=== PATIENT | female | born 1955 | race Caucasian/White ===

== ENCOUNTER → 2021-04-30 | Outpatient (CLI) | payer MEDICARE ==
--- NOTE | 2021-04-30 15:32 | RAD ---
EXAM: Renal sonogram. HISTORY: Renal insufficiency. Family history of polycystic kidney disease. TECHNIQUE: Sonographic imaging the kidneys and bladder was performed. COMPARISON: None. FINDINGS: The kidneys are normal in size. No solid or cystic renal lesion is seen. There is a promine nt left renal pelvis. The prevoid bladder volume is 83 cc and the post void bladder volume is 16 cc. IMPRESSION: 1. Mild left renal pelviectasis. There is no bk hydronephrosis. 2. Minimal post void bladder residual of 16 cc. Electronically signed by: Kelly Umanzor MD (04/30/2021 3:29 PM) [id number]
== END ==
LOC: US 14:53
PROVIDERS: ATTEND Urology
DX: R39.15 Urgency of urination (principal)
CPT/HCPCS: 76770